=== PATIENT | male | born 1940 | race Caucasian/White ===

== ENCOUNTER 2016-11-21 10:26 | Inpatient (IN) | payer MEDICARE, BC ==
[~2016-11-21] VITALS: Ht 175.3 cm; Wt 87.5 kg
[2016-11-21 16:59] LABS: HEMOGLOBIN 14.9 gm/dl (14.0-17.5); RED BLOOD COUNT 4.59 M/UL (4.20-5.50); WHITE BLOOD COUNT 15.6 K/UL (4.5-11.0)
[2016-11-22 07:12] LABS: WHITE BLOOD COUNT 15.9 K/UL (4.5-11.0)
[2016-11-22 07:13] LABS: RED BLOOD COUNT 4.11 M/UL (4.20-5.50)
[2016-11-22] MEDS ORDERED: LOPRESSOR100 MG PO (10:03)
[2016-11-22] MEDS ORDERED: HYDRALAZINE HCL50 MG PO (10:04)
[2016-11-22] MEDS ORDERED: LASIX20 MG PO (10:05)
[2016-11-22] MEDS ORDERED: NAMENDA XR28 MG PO (10:05)
[2016-11-22] MEDS ORDERED: ASPIR 8181 MG PO (10:05)
[2016-11-22] MEDS ORDERED: RIVASTIGMINE1.5 MG PO (10:06)
[2016-11-22] MEDS ORDERED: IMDUR ER TAB 3030 MG PO (10:06)
[2016-11-22] MEDS ORDERED: COUMADIN2.5 MG PO (10:08)
[2016-11-22] MEDS ORDERED: COUMADIN5 MG PO (10:08)
[2016-11-22] MEDS ORDERED: ZETIA10 MG PO (10:09)
[2016-11-23 05:30] LABS: HEMOGLOBIN 12.9 gm/dl (14.0-17.5); RED BLOOD COUNT 4.13 M/UL (4.20-5.50); WHITE BLOOD COUNT 15.4 K/UL (4.5-11.0)
[2016-11-24 04:52] LABS: HEMOGLOBIN 12.6 gm/dl (14.0-17.5); RED BLOOD COUNT 3.99 M/UL (4.20-5.50); WHITE BLOOD COUNT 16.2 K/UL (4.5-11.0)
[2016-11-25 05:56] LABS: HEMOGLOBIN 12.7 gm/dl (14.0-17.5); RED BLOOD COUNT 4.03 M/UL (4.20-5.50); WHITE BLOOD COUNT 16.3 K/UL (4.5-11.0)
[2016-11-26 06:40] LABS: HEMOGLOBIN 12.7 gm/dl (14.0-17.5); RED BLOOD COUNT 3.97 M/UL (4.20-5.50); WHITE BLOOD COUNT 15.1 K/UL (4.5-11.0)
[2016-11-27 04:37] LABS: HEMOGLOBIN 12.6 gm/dl (14.0-17.5); RED BLOOD COUNT 3.98 M/UL (4.20-5.50); WHITE BLOOD COUNT 15.4 K/UL (4.5-11.0)
[2016-11-28 07:23] LABS: HEMOGLOBIN 13.1 gm/dl (14.0-17.5); RED BLOOD COUNT 4.22 M/UL (4.20-5.50); WHITE BLOOD COUNT 15.3 K/UL (4.5-11.0)
[2016-11-29 05:50] LABS: HEMOGLOBIN 12.9 gm/dl (14.0-17.5); RED BLOOD COUNT 4.12 M/UL (4.20-5.50); WHITE BLOOD COUNT 15.4 K/UL (4.5-11.0)
--- NOTE | 2016-11-29 12:19 | NUR ---
PATIENT NOT OPENING HIS EYES, MAKING NOISE, DAYNE HAVING DIFFICULTY GIVING HIS MEDICATION, DISCUSSED TO DR. GILES ABOUT PATIENT CONDITION. SON CALLED ME TO PATIENT ROOM, ATTEMPTED TO GIVE PATIENT MEDICATION AGAIN WITH SUCCESS.
--- NOTE | 2016-11-29 12:22 | NUR ---
DR. MENJIVAR MADE HIS ROUND AND AWARE OF THE PATIENT CONDITION
[2016-11-30 04:17] LABS: HEMOGLOBIN 13.4 gm/dl (14.0-17.5); RED BLOOD COUNT 4.25 M/UL (4.20-5.50); WHITE BLOOD COUNT 13.2 K/UL (4.5-11.0)
[2016-12-01 03:59] LABS: HEMOGLOBIN 12.8 gm/dl (14.0-17.5); RED BLOOD COUNT 4.13 M/UL (4.20-5.50); WHITE BLOOD COUNT 12.2 K/UL (4.5-11.0)
[2016-12-02 04:08] LABS: HEMOGLOBIN 12.9 gm/dl (14.0-17.5); RED BLOOD COUNT 4.17 M/UL (4.20-5.50); WHITE BLOOD COUNT 10.9 K/UL (4.5-11.0)
[2016-12-03 04:19] LABS: HEMOGLOBIN 12.7 gm/dl (14.0-17.5); RED BLOOD COUNT 4.1 M/UL (4.20-5.50); WHITE BLOOD COUNT 13.4 K/UL (4.5-11.0)
[2016-12-04 05:43] LABS: HEMOGLOBIN 13.3 gm/dl (14.0-17.5); RED BLOOD COUNT 4.23 M/UL (4.20-5.50)
[2016-12-04 05:44] LABS: WHITE BLOOD COUNT 18.2 K/UL (4.5-11.0)
== END 2016-12-04 14:26 | disposition expired | DRG 208 ==
LOC: ER1 10:26 → MED SURG 4 20:25 → CCU 20:25 → ZEROF 20:25 → MED SURG 4 11-22 09:37 → CCU 11-30 12:05
PROVIDERS: Internal Medicine; Internal Medicine Cardiovascular Disease; Internal Medicine Infectious Disease; Internal Medicine Pulmonary Disease; ADMIT Internal Medicine
PROC: 0BH17EZ Insertion of Endotracheal Airway into Trachea, Via Natural or Artificial Opening (ICD-10-PCS; 2016-12-02)
PROC: 0B968ZX Drainage of Right Lower Lobe Bronchus, Via Natural or Artificial Opening Endoscopic, Diagnostic (ICD-10-PCS; 2016-12-02)
PROC: 0B9B8ZX Drainage of Left Lower Lobe Bronchus, Via Natural or Artificial Opening Endoscopic, Diagnostic (ICD-10-PCS; 2016-12-02)
PROC: 05HM33Z Insertion of Infusion Device into Right Internal Jugular Vein, Percutaneous Approach (ICD-10-PCS; 2016-12-02)
PROC: 5A1945Z Respiratory Ventilation, 24-96 Consecutive Hours (ICD-10-PCS; principal; 2016-12-02 10:30)
DX: J69.0 Pneumonitis due to inhalation of food and vomit (principal); J96.01 Acute respiratory failure with hypoxia; G93.40 Encephalopathy, unspecified; A41.9 Sepsis, unspecified organism; R65.21 Severe sepsis with septic shock; J96.02 Acute respiratory failure with hypercapnia; I50.32 Chronic diastolic (congestive) heart failure; I13.0 Hypertensive heart and chronic kidney disease with heart failure and stage 1 through stage 4 chronic kidney disease, or unspecified chronic kidney disease; N17.9 Acute kidney failure, unspecified; K56.7 Ileus, unspecified; E87.0 Hyperosmolality and hypernatremia; E87.4 Mixed disorder of acid-base balance; I25.10 Atherosclerotic heart disease of native coronary artery without angina pectoris; I11.0 Hypertensive heart disease with heart failure; I48.0 Paroxysmal atrial fibrillation; L89.151 Pressure ulcer of sacral region, stage 1; G30.9 Alzheimer's disease, unspecified; F02.80 Dementia in other diseases classified elsewhere, unspecified severity, without behavioral disturbance, psychotic disturbance, mood disturbance, and anxiety; N18.3 Chronic kidney disease, stage 3 (moderate); I25.5 Ischemic cardiomyopathy; R40.2434 Glasgow coma scale score 3-8, 24 hours or more after hospital admission; Z95.0 Presence of cardiac pacemaker; Z91.041 Radiographic dye allergy status; Z95.5 Presence of coronary angioplasty implant and graft; Z79.01 Long term (current) use of anticoagulants
CPT/HCPCS: ECHO; 31500; 36415; 36600; 71010; 74000; 80048; 80053; 81001; 82043; 82550; 82553; 82570; 82607; 82803; 82962; 83605; 83690; 83874; 83880; 84132; 84443; 84484; 85025; 85027; 85610; 87040; 87070; 87086; 87102; 87205; 93005; 93306; 94002; 94003; 94640; 94660; 94664; 96365; 96366; 96367; 96372; 96375; 97110; 97530; 99285; J0456; J0696; J1940; J2020; J2185; J2250; J2543; J2930; J3430; J3480; J7030; J7050; J7070